=== PATIENT | male | born 1935 | race Caucasian/White ===

== ENCOUNTER 2019-05-05 22:11 | Emergency (ER) | payer MEDICARE ==
[~2019-05-05] VITALS: Ht 167.6 cm; Wt 81.8 kg
[2019-05-05 22:11] VITALS: BP 178/89
[~2019-05-05 22:11] MED LIST: AMLO10TA5 PO; ASPI81TA26 PO; FINA5TAB2 PO; KETO0.5S2 OD; LISI10TA4 PO; SAVITAB PO; TIMO0.5S29 OD; VITA100066 PO
[2019-05-05 22:38] LABS: BASO # 0.1 10^3/uL (0.0-0.2); BASO % 0.5 % (0.0-1.0); EOS # 0.3 10^3/uL (0.0-0.5); EOS % 2.7 % (0.0-3.0); HEMATOCRIT 42.3 % (42.0-52.0); HEMOGLOBIN 13.3 g/dl (13.5-17.5); LYMPH # 3.1 10^3/uL (1.5-5.0); LYMPH % 28.9 % (24.0-44.0); MEAN CORPUSCULAR HEMOGLOBIN 26.5 pg (27.0-33.0); MEAN CORPUSCULAR HGB CONC 31.4 g/dl (32.0-36.5); MEAN CORPUSCULAR VOLUME 84.4 fl (80.0-96.0); MONO # 0.8 10^3/uL (0.0-0.8); MONO % 7.3 % (0.0-5.0); NEUTROPHILS # 6.3 10^3/uL (1.5-8.5); NEUTROPHILS % 59.9 % (36.0-66.0); PLATELET COUNT, AUTOMATED 296 10^3/uL (150-450); RED BLOOD COUNT 5.01 10^6/uL (4.30-6.10); WHITE BLOOD COUNT 10.6 10^3/uL (4.0-10.0)
[2019-05-05 23:00] LABS: ALBUMIN 3.9 GM/DL (3.2-5.2); BILIRUBIN,TOTAL 0.2 MG/DL (0.2-1.0); CALCIUM LEVEL 8.9 MG/DL (8.8-10.2); GLOMERULAR FILTRATION RATE 34.2 (>35); POTASSIUM SERUM 4.4 MEQ/L (3.5-5.1); TOTAL PROTEIN 8.3 GM/DL (6.4-8.2)
[2019-05-05] MEDS ORDERED: NS 500 ML IV ONE (23:15)
== END 2019-05-06 00:17 | disposition home or self-care (01) ==
LOC: M ED 22:11
DX: N18.9 Chronic kidney disease, unspecified (principal); K21.9 Gastro-esophageal reflux disease without esophagitis; N40.0 Benign prostatic hyperplasia without lower urinary tract symptoms; I10 Essential (primary) hypertension; H40.9 Unspecified glaucoma; Z79.82 Long term (current) use of aspirin; Z79.899 Other long term (current) drug therapy

== ENCOUNTER → 2020-06-12 | Outpatient (CLI) | payer MEDICARE ==
[~2020-06-12] MED LIST changes: -AMLO10TA5 PO; +AMLO1TAB25 PO; +PREDOPD OD
== END ==
LOC: M LABSMTC 12:46
PROVIDERS: ATTEND Anesthesiology
DX: Z01.818 Encounter for other preprocedural examination (principal)
CPT/HCPCS: C9803; U0003

== ENCOUNTER 2020-06-17 10:13 | Day surgery (SDC) | payer MEDICARE ==
[~2020-06-17] VITALS: Ht 170.2 cm; Wt 78.8 kg
[~2020-06-17 10:13] MED LIST changes: +NS 1,000 ML IV ONE
[2020-06-17] MEDS ORDERED: propofoL 200 MG/20 ML VIAL As Ordered ONE (10:39)
[2020-06-17] MEDS ORDERED: LIDOCAINE 2% 100MG/5ML SDV (FOR ANES.) As Ordered ONE (10:39)
[2020-06-17] MEDS ORDERED: ePHEDrine SULFATE 25 MG/5 ML(5MG/ML) SYRINGE As Ordered ONE (11:31)
--- NOTE | 2020-06-17 11:51 | ROOR ---
Patient Name: Shiva Mariee Procedure Date: 06/17/2020 11:18 AM Date of : 1935 Age: 85 Room: [facility] Gender: Male Note Status: Finalized Procedure: Total Colonoscopy to Cecum + Cold Snare + Biopsy Polypectomy Indications: Positive Cologuard test Providers: Se Fowler MD Referring MD: ARON HENNESSY DO Requesting Provider: Medicines: Monitored Anesthesia Care Complications: No immediate complications. Procedure: Pre-Anesthesia Assessment: - The heart rate, respiratory rate, oxygen saturations, blood pressure, adequacy of pulmonary ventilation, and response to care were monitored throughout the procedure. The Colonoscope was introduced through the anus and advanced to the cecum, identified by appendiceal orifice and ileocecal valve. The colonoscopy was performed without difficulty. The patient tolerated the procedure well. The quality of the bowel preparation was excellent. Findings: The perianal and digital rectal examinations were normal. Non-bleeding internal hemorrhoids were found during retroflexion. The hemorrhoids were small and Grade I (internal hemorrhoids that do not prolapse). Multiple sessile polyps were found in the ascending colon and cecum. The polyps were small in size. These polyps were removed with a cold snare. Resection and retrieval were complete. A medium polyp was found at 10 cm proximal to the anus. The polyp was sessile. The polyp was removed with a cold snare. Resection and retrieval were complete. The exam was otherwise without abnormality on direct and retroflexion views. Impression: - Non-bleeding internal hemorrhoids. - Multiple small polyps in the ascending colon and in the cecum, removed with a cold snare. Resected and retrieved. - One medium polyp at 10 cm proximal to the anus, removed with a cold snare. Resected and retrieved. - The examination was otherwise normal on direct and retroflexion views. - The exam was otherwise normal to the cecum. Recommendation: - Patient has a contact number available for emergencies. The signs and symptoms of potential delayed complications were discussed with the patient. Return to normal activities tomorrow. Written discharge instructions were provided to the patient. - High fiber diet. - Discharge patient to home. - Continue present medications. - Await pathology results. - Telephone GI clinic for pathology results in 1 week. - Repeat colonoscopy is not recommended due to current age (66 years or older) for surveillance. - The findings and recommendations were discussed with the patient. Se Fowler MD Se Fowler MD 06/17/2020 11:51:19 AM Electronically signed by Se Fowler MD Number of Addenda: 0 Note Initiated On: 06/17/2020 11:18 AM Estimated Blood Loss: Estimated blood loss: none.
[2020-06-17 12:05] VITALS: BP 111/64
== END 2020-06-17 12:16 | disposition home or self-care (01) ==
LOC: M OPP 10:13
PROVIDERS: ATTEND Internal Medicine Gastroenterology
DX: D12.6 Benign neoplasm of colon, unspecified (principal); K64.0 First degree hemorrhoids; R19.5 Other fecal abnormalities